=== PATIENT | female | born 1995 | race African-American/Black ===

== ENCOUNTER 2018-01-05 05:42 | Day surgery (SDC) | payer OTHER ==
[~2018-01-05] VITALS: Ht 172.7 cm; Wt 63.5 kg
[2018-01-05 06:16] LABS: BILIRUBIN,URINE NEGATIVE (NEGATIVE); CLARITY,URINE CLEAR; COLOR,URINE YELLOW; GLUCOSE, URINE (UA) NEGATIVE (NEGATIVE); KETONES,URINE NEGATIVE (NEGATIVE); LEUKOCYTE ESTERASE ,URINE NEGATIVE (NEGATIVE); NITRITE,URINE NEGATIVE (NEGATIVE); PH,URINE 6.5 (5-9); PROTEIN,URINE 1+ (NEGATIVE); UROBILINOGEN,URINE NORMAL (NORMAL)
[2018-01-05] MEDS ORDERED: LACTATED RINGERS 1,000 ML IV ONE ×3 (06:26→11:23)
--- NOTE | 2018-01-05 06:28 | ED Abdominal Pain ---
General Chief Complaint: Abdominal/GI Problems Stated Complaint: ABD PAIN Nursing Triage Note: pt presents to er with complaint of lower/midline abd pain. states the pain started yesterday but has worsened this morning. states she has thrown up once, denies diarrhea. Sepsis Screen: No Definite Risk Source of Information: Patient Exam Limitations: No Limitations History of Present Illness Date Seen by Provider: Jan 05, 2018 Time Seen by Provider: 06:00 Initial Comments Patient presents to ER by private conveyance with a chief complaint starting about 2:00 in the afternoon yesterday after eating she started having some abdominal pain that she describes starting around her umbilicus and radiating down towards her suprapubic region. She says the pain waxes and wanes from intensity of severity to moderate. She is not having any nausea presently but she did vomit 1 when the pain started. She took some Advil as well as some Excedrin but this is made no difference in her pain. She does not have a history of abdominal surgeries or abdominal problems. She does not have any dysuria, fevers, chills or recent trauma. She says this was starting after she ate and she tried to go on and perform at the [facility] and [place], [place] but could not push to the pain. It is not getting any better so she came to the ER. She is currently on her period. Allergies and Home Medications Allergies Coded Allergies: No Known Drug Allergies (Unverified , 01/05/18) Home Medications No Active Prescriptions or Reported Meds Patient Home Medication List Home Medication List Reviewed: Yes Review of Systems Constitutional: No chills, No diaphoresis, No fever, No malaise EENTM: No Blurred Vision, No Double Vision Respiratory: Denies Cough, Denies Shortness of Air Cardiovascular: Denies Chest Pain, Denies Palpitations, Denies Syncope Gastrointestinal: Denies Constipated, Denies Diarrhea, Denies Nausea Past Htmgrlm-Worbbv-Ypnsro Hx Patient Social History Alcohol Use: Denies Use Recreational Drug Use: No Smoking Status: Never a Smoker Recent Foreign Travel: No Contact w/Someone Who Travel: No Recent Infectious Disease Expo: No Recent Hopitalizations: No Immunizations Up To Date PED Vaccines UTD: Yes Seasonal Allergies Seasonal Allergies: No Surgeries History of Surgeries: No Respiratory History of Respiratory Disorde: No Cardiovascular History of Cardiac Disorders: No Neurological History of Neurological Disord: No Genitourinary History of Genitourinary Disor: No Gastrointestinal History of Gastrointestinal Di: No Musculoskeletal History of Musculoskeletal Dis: No Endocrine History of Endocrine Disorders: No HEENT History of HEENT Disorders: No Cancer History of Cancer: No Psychosocial History of Psychiatric Problem: No Integumentary History of Skin or Integumenta: No Blood Transfusions History of Blood Disorders: No Physical Exam Vital Signs VS - Last 72 Hours, by Label 01/05/18 05:50 Temp 97.0 Pulse 73 Resp 17 B/P (MAP) 123/84 (97) Pulse Ox 100 O2 Delivery Room Air Capillary Refill : Less Than 3 Seconds General Appearance: WD/WN, mild distress, thin HEENT: PERRL/EOMI, pharynx normal Neck: non-tender, supple, normal inspection Respiratory: chest non-tender, lungs clear, normal breath sounds Cardiovascular: normal peripheral pulses, regular rate, rhythm Gastrointestinal: normal bowel sounds, guarding, rebound (over McBurney's point ), tenderness (that was last night) Extremities: no pedal edema, no calf tenderness, normal capillary refill Neurologic/Psychiatric: alert, normal mood/affect, oriented x 3 Skin: normal color, warm/dry Progress/Results/Core Measures Results/Orders Lab Results Laboratory Tests Test 01/05/18 05:30 01/05/18 05:50 Range/Units White Blood Count 14.8 H 4.3-11.0 10^3/uL Red Blood Count 4.42 4.35-5.85 10^6/uL Hemoglobin 13.0 11.5-16.0 G/DL Hematocrit 38 35-52 % Mean Corpuscular Volume 86 80-99 FL Mean Corpuscular Hemoglobin 29 25-34 PG Mean Corpuscular Hemoglobin Concent 34 32-36 G/DL Red Cell Distribution Width 12.9 10.0-14.5 % Platelet Count 258 130-400 10^3/uL Mean Platelet Volume 11.0 H 7.4-10.4 FL Neutrophils (%) (Auto) 75 42-75 % Lymphocytes (%) (Auto) 16 12-44 % Monocytes (%) (Auto) 8 0-12 % Eosinophils (%) (Auto) 1 0-10 % Basophils (%) (Auto) 0 0-10 % Neutrophils # (Auto) 11.1 H 1.8-7.8 X 10^3 Lymphocytes # (Auto) 2.3 1.0-4.0 X 10^3 Monocytes # (Auto) 1.2 H 0.0-1.0 X 10^3 Eosinophils # (Auto) 0.1 0.0-0.3 10^3/uL Basophils # (Auto) 0.0 0.0-0.1 10^3/uL Neutrophils % (Manual) 80 % Lymphocytes % (Manual) 12 % Monocytes % (Manual) 7 % Eosinophils % (Manual) 1 % Toxic Granulation 1+ Blood Morphology Comment NORMAL Sodium Level 138 135-145 MMOL/L Potassium Level 3.7 3.6-5.0 MMOL/L Chloride Level 105 98-107 MMOL/L Carbon Dioxide Level 25 21-32 MMOL/L Anion Gap 8 5-14 MMOL/L Blood Urea Nitrogen 15 7-18 MG/DL Creatinine 0.96 0.60-1.30 MG/DL Estimat Glomerular Filtration Rate > 60 BUN/Creatinine Ratio 16 Glucose Level 101 70-105 MG/DL Calcium Level 9.1 8.5-10.1 MG/DL Total Bilirubin 0.5 0.1-1.0 MG/DL Aspartate Amino Transf (AST/SGOT) 22 5-34 U/L Alanine Aminotransferase (ALT/SGPT) 13 0-55 U/L Alkaline Phosphatase 51 40-136 U/L C-Reactive Protein High Sensitivity 0.65 H 0.00-0.50 MG/DL Total Protein 7.0 6.4-8.2 GM/DL Albumin 4.1 3.2-4.5 GM/DL Urine Color YELLOW Urine Clarity CLEAR Urine pH 6.5 5-9 Urine Specific [place] 1.020 1.016-1.022 Urine Protein 1+ H NEGATIVE Urine Glucose (UA) NEGATIVE NEGATIVE Urine Ketones NEGATIVE NEGATIVE Urine Nitrite NEGATIVE NEGATIVE Urine Bilirubin NEGATIVE NEGATIVE Urine Urobilinogen NORMAL NORMAL MG/DL Urine Leukocyte Esterase NEGATIVE NEGATIVE Urine RBC (Auto) 1+ H NEGATIVE Urine RBC RARE /HPF Urine WBC NONE /HPF Urine Squamous Epithelial Cells 2-5 /HPF Urine Crystals PRESENT H /LPF Urine Amorphous Sediment RARE KELLIE URATES H /LPF Urine Bacteria TRACE /HPF Urine Casts NONE /LPF Urine Mucus SMALL H /LPF Urine Culture Indicated NO Urine Test NEGATIVE NEGATIVE My Orders Orders - GABRIELLE ISM Ua Culture If Indicated (01/05/18 05:43) Hcg,Qualitative Urine (01/05/18 05:43) Cbc With Automated Diff (01/05/18 06:26) Comprehensive Metabolic Panel (01/05/18 06:26) Hs C Reactive Protein (01/05/18 06:26) Saline Lock/Iv-Start (01/05/18 06:26) Lactated Ringers (Lr 1000 Ml Iv Solution (01/05/18 06:26) Ct Abd/Pelv W (Appendicitis) (01/05/18 06:26) Fentanyl Injection (Sublimaze Injection (01/05/18 06:30) Manual Differential (01/05/18 05:30) Iohexol Injection (Omnipaque 350 Mg/Ml 1 (01/05/18 07:45) Ns (Ivpb) (Sodium Chloride 0.9% Ivpb Bag (01/05/18 07:45) Piperacillin Sodium/Tazobactam (Zosyn Vi (01/05/18 08:30) Fentanyl Injection (Sublimaze Injection (01/05/18 08:30) Medications Given in ED Current Medications Medications Dose Ordered Sig/Oneal Route Start Time Stop Time Status Last Admin Dose Admin Fentanyl Citrate 50 mcg ONCE ONCE IVP 01/05/18 06:30 01/05/18 06:31 DC 01/05/18 06:32 50 MCG Iohexol 100 ml ONCE ONCE IV 01/05/18 07:45 01/05/18 07:52 DC 01/05/18 07:38 100 ML Lactated Ringer's 1,000 ml @ 0 mls/hr Q0M ONCE IV 01/05/18 06:26 01/05/18 06:28 DC 01/05/18 06:32 1,000 MLS/HR Sodium Chloride 100 ml ONCE ONCE IV 01/05/18 07:45 01/05/18 07:52 DC 01/05/18 07:38 100 ML Vital Signs/I&O Vital Sign - Last 12Hours 01/05/18 05:50 Temp 97.0 Pulse 73 Resp 17 B/P (MAP) 123/84 (97) Pulse Ox 100 O2 Delivery Room Air Blood Pressure Mean: 97 Progress Note : Time: 08:19 Progress Note Zosyn and pain meds and the surgeon will come see her in the ER. Diagnostic Imaging Diagonstic Imaging: CT (with contrast) Plain Films/CT/US/NM/MRI: abdomen, pelvis Comments Discussed with radiologist and she feels that because of the lack of intra- abdominal fat is very difficult to tell if she is looking at the appendix or a blind loop of small bowel. There is lots of loops was distended bowel but she feels there is an 11 mm diameter case of mild appendicitis and a possible mid appendicolith. She would recommend clinical correlation and if we need further imaging could do another CT of the pelvis with rectal contrast. Impression: Amenable mild acute appendicitis with a possible small mid appendicolith and mild dilatation of the mid distal appendix up to 12 mm in diameter. However differentiation of the appendix from adjacent fluid filled small bowel loops is limited. If further imaging evaluation is desired suggest repeat pelvic CT following rectal contrast administration. Reviewed: Reviewed by Me, Discussed w/Radiologist (eugenio) Departure Communication (Admissions) Time/Spoke to Admitting Phy: 08:18 Communication Delman: Discussed case lab imaging findings with the general surgeon and he agrees with the diagnosis of appendicitis and will come see the patient in the ER. Impression Impression: Primary Impression: Appendicitis Qualified Codes: K35.80 - Unspecified acute appendicitis Disposition: ADMITTED INPATIENT Condition: Stable Admissions Decision to Admit Reason: Admit from ER (General) Decision to Admit/Date: Jan 05, 2018 Time/Decision to Admit Time: 08:19 Departure-Patient Inst. Referrals: NO,LOCAL PHYSICIAN (PCP/Family) Primary Care Physician Scripts No Active Prescriptions or Reported Meds GABRIELLE SIM Jan 05, 2018 06:28
[2018-01-05] MEDS ORDERED: fentaNYL INJECTION 100 MCG/2 ML AMP IVP ONE ×2 (06:30→08:30)
[2018-01-05 06:36] LABS: BASOPHILS % (AUTO) 0 % (0-10); EOSINOPHILS # (AUTO) 0.1 10^3/uL (0.0-0.3); EOSINOPHILS % (AUTO) 1 % (0-10); HEMATOCRIT 38 % (35-52); LYMPHOCYTES # (AUTO) 2.3 X 10^3 (1.0-4.0); LYMPHOCYTES % (AUTO) 16 % (12-44); MEAN CORPUSCULAR HEMOGLOBIN 29 PG (25-34); MEAN CORPUSCULAR HGB CONC 34 G/DL (32-36); MEAN CORPUSCULAR VOLUME 86 FL (80-99); MONOCYTES # (AUTO) 1.2 X 10^3 (0.0-1.0); MONOCYTES % (AUTO) 8 % (0-12); NEUTROPHILS # (AUTO) 11.1 X 10^3 (1.8-7.8); NEUTROPHILS % (AUTO) 75 % (42-75); PLATELET COUNT 258 10^3/uL (130-400); RED BLOOD COUNT 4.42 10^6/uL (4.35-5.85); RED CELL DISTRIBUTION WIDTH 12.9 % (10.0-14.5); WHITE BLOOD COUNT 14.8 10^3/uL (4.3-11.0)
[2018-01-05 06:39] LABS: RBC,URINE RARE /HPF
[2018-01-05 06:40] LABS: AMORPHOUS SEDIMENT,UR RARE AMOR URATES /LPF; BACTERIA,URINE TRACE /HPF
[2018-01-05 06:52] LABS: ALANINE AMINOTRANSFERASE 13 U/L (0-55); ALBUMIN 4.1 GM/DL (3.2-4.5); ALKALINE PHOSPHATASE 51 U/L (40-136); BILIRUBIN,TOTAL 0.5 MG/DL (0.1-1.0); BUN/CREATININE RATIO 16; CALCIUM 9.1 MG/DL (8.5-10.1); CARBON DIOXIDE 25 MMOL/L (21-32); CHLORIDE 105 MMOL/L (98-107); CREATININE SERUM 0.96 MG/DL (0.60-1.30); GFR ESTIMATED > 60; GLUCOSE 101 MG/DL (70-105); POTASSIUM 3.7 MMOL/L (3.6-5.0); SODIUM 138 MMOL/L (135-145)
[2018-01-05 06:54] LABS: EOSINOPHILS % (MANUAL) 1 %; LYMPHOCYTES % (MANUAL) 12 %; MONOCYTES % (MANUAL) 7 %; NEUTROPHILS % (MANUAL) 80 %
[2018-01-05 06:55] LABS: RBC MORPH NORMAL; TOXIC GRANULATION/VACUOLAZATIO 1+
[2018-01-05] MEDS ORDERED: NS 100 ML (IVPB) BAG IV ONE (07:45)
[2018-01-05] MEDS ORDERED: IOHEXOL 350 MG/ML 100 ML (OMNIPAQUE 350) VIAL IV ONE (07:45)
--- NOTE | 2018-01-05 07:53 | Diagnostic Imaging Report ---
PROCEDURE: CT abdomen and pelvis with contrast, rule out appendicitis. TECHNIQUE: Multiple contiguous axial images were obtained through the abdomen and pelvis after the administration of intravenous contrast. INDICATION: Abdominal pain. COMPARISON: None. FINDINGS: The lung bases are clear. There is some focal fatty change around the falciform ligament. The liver appears unremarkable. The gallbladder appears normal. There is no biliary dilatation. The spleen, pancreas, adrenal glands, and kidneys appear unremarkable. There is no evidence of appendicitis. There is no evidence of bowel obstruction or focal inflammatory process. The uterus and adnexa appear unremarkable. The bladder appears unremarkable. The abdominal aorta appears normal in caliber. There are a few prominent lymph nodes in the mesentery of the central abdomen. IMPRESSION: No acute abnormality is demonstrated in the abdomen or pelvis. There are a few prominent lymph nodes in the central mesentery. These are nonspecific. There is no evidence of appendicitis. Dictated by: Dictated on workstation # [id number]
[2018-01-05] MEDS ORDERED: PIPERACILLIN SODIUM/TAZOBACTAM 4.5 GM in NS (IVPB) 100 ML IV ONE (08:30)
[2018-01-05] MEDS ORDERED: LIDOCAINE/EPI 1%-1:200,000 (XYLOCAINE) 10 ML VIAL ONE (10:11)
[2018-01-05] MEDS ORDERED: ROCURONIUM 10 MG/ML 5 ML SYRINGE IV ONE (10:14)
[2018-01-05] MEDS ORDERED: LIDOCAINE PF 2% 5 ML (XYLOCAINE) VIAL ONE (10:14)
[2018-01-05] MEDS ORDERED: SEVOFLURANE (ULTANE) 15 ML INHAL SOLN ONE (10:14)
[2018-01-05] MEDS ORDERED: proPOfol 200 MG/20 ML (DIPRIVAN) VIAL IV ONE (10:14)
[2018-01-05] MEDS ORDERED: fentaNYL INJECTION 100 MCG/2 ML AMP ONE (10:15)
[2018-01-05] MEDS ORDERED: MIDAZOLAM 2 MG/2 ML (VERSED) VIAL ONE (10:15)
--- NOTE | 2018-01-05 10:17 | Consultation ---
History of Present Illness History of Present Illness Patient Consulted On(geronimo/time) 01/05/18 10:09 Time Seen by Provider: 09:49 History of Present Illness Surgery asked to consult regarding possible appendicitis. HPI per ED: Patient presents to ER by private conveyance with a chief complaint starting about 2:00 in the afternoon yesterday after eating she started having some abdominal pain that she describes starting around her umbilicus and radiating down towards her suprapubic region. She says the pain waxes and wanes from intensity of severity to moderate. She is not having any nausea presently but she did vomit 1 when the pain started. She took some Advil as well as some Excedrin but this is made no difference in her pain. She does not have a history of abdominal surgeries or abdominal problems. She does not have any dysuria, fevers, chills or recent trauma. She says this was starting after she ate and she tried to go on and perform at the [facility] and [place], [place] but could not push to the pain. It is not getting any better so she came to the ER. She is currently on her period. Pt states the pain is 8 out of 10 without the pain meds, she couldn't even walk because of the pain (had to be hunched over). She says the pain is sharp and constant. She points to her right LQ when asked to point with one finger where the pain is worst. Allergies and Home Medications Allergies Coded Allergies: No Known Drug Allergies (Unverified , 01/05/18) Home Medications No Active Prescriptions or Reported Meds Patient Home Medication List Home Medication List Reviewed: Yes Past Yxbthcx-Amnytw-Oyhlgl Hx Patient Social History Alcohol Use: Denies Use Recreational Drug Use: No Smoking Status: Never a Smoker Recent Foreign Travel: No Contact w/Someone Who Travel: No Recent Infectious Disease Expo: No Recent Hopitalizations: No Immunizations Up To Date PED Vaccines UTD: Yes Seasonal Allergies Seasonal Allergies: No Surgeries History of Surgeries: No Respiratory History of Respiratory Disorde: No Cardiovascular History of Cardiac Disorders: No Neurological History of Neurological Disord: No Genitourinary History of Genitourinary Disor: No Gastrointestinal History of Gastrointestinal Di: No Musculoskeletal History of Musculoskeletal Dis: No Endocrine History of Endocrine Disorders: No HEENT History of HEENT Disorders: No Cancer History of Cancer: No Psychosocial History of Psychiatric Problem: No Integumentary History of Skin or Integumenta: No Blood Transfusions History of Blood Disorders: No Family Medical History Significant Family History: Asthma (parents) Review of Systems-General Constitutional: chills, No diaphoresis, No dizziness, No fever, weakness EENTM: No blurred vision, No mouth pain, No mouth swelling, No epistaxis, No throat swelling Respiratory: No cough, No dyspnea on exertion, No hemoptysis Cardiovascular: No chest pain, No edema, No palpitations Gastrointestinal: RLQ, No hematemesis, No melena, vomiting Genitourinary: No dysuria, No frequency, No hematuria : No LMP: Jan 05, 2018 Musculoskeletal: No back pain, No joint pain, No muscle stiffness, No muscle cramps Skin: No change in color, No change in hair/nails Psychiatric/Neurological: Denies Anxiety, Denies Depressed Other pt denies any history of abnormal bruising or bleeding. Denies any heat or cold intolerance Physical Exam-General Problems Physical Exam Vital Signs Vital Signs - First Documented 01/05/18 05:50 Temp 97.0 Pulse 73 Resp 17 B/P (MAP) 123/84 (97) Pulse Ox 100 O2 Delivery Room Air Capillary Refill : Less Than 3 Seconds General Appearance: WD/WN, mild distress Eyes: Bilateral Eye PERRL, Bilateral Eye EOMI HEENT: pharynx normal, No scleral icterus (R), No scleral icterus (L), No pale conjunctivae (R), No pale conjunctivae (L) Neck: non-tender, full range of motion, supple, normal inspection Respiratory: chest non-tender, lungs clear, normal breath sounds, no respiratory distress, no accessory muscle use Cardiovascular: regular rate, rhythm, no edema, no gallop, no JVD, no murmur Gastrointestinal: normal bowel sounds, no organomegaly, guarding (voluntary), rebound, tenderness (RLQ), No hernia Back: no CVA tenderness, no vertebral tenderness Extremities: normal range of motion, non-tender, normal inspection, no pedal edema, no calf tenderness Neurologic/Psychiatric: loom setter fourdrinier II-XII nml as tested, no motor/sensory deficits, alert, normal mood/affect, oriented x 3 Skin: normal color, warm/dry Lymphatic: no adenopathy (neck, axilla or groin) Data Review Labs Laboratory Tests 01/05/18 05:30: White Blood Count 14.8H, Red Blood Count 4.42, Hemoglobin 13.0, Hematocrit 38, Mean Corpuscular Volume 86, Mean Corpuscular Hemoglobin 29, Mean Corpuscular Hemoglobin Concent 34, Red Cell Distribution Width 12.9, Platelet Count 258, Mean Platelet Volume 11.0H, Neutrophils (%) (Auto) 75, Lymphocytes (%) (Auto) 16 , Monocytes (%) (Auto) 8, Eosinophils (%) (Auto) 1, Basophils (%) (Auto) 0, Neutrophils # (Auto) 11.1H, Lymphocytes # (Auto) 2.3, Monocytes # (Auto) 1.2H, Eosinophils # (Auto) 0.1, Basophils # (Auto) 0.0, Neutrophils % (Manual) 80, Lymphocytes % (Manual) 12, Monocytes % (Manual) 7, Eosinophils % (Manual) 1, Toxic Granulation 1+, Blood Morphology Comment NORMAL, Sodium Level 138, Potassium Level 3.7, Chloride Level 105, Carbon Dioxide Level 25, Anion Gap 8, Blood Urea Nitrogen 15, Creatinine 0.96, Estimat Glomerular Filtration Rate > 60 , BUN/Creatinine Ratio 16, Glucose Level 101, Calcium Level 9.1, Total Bilirubin 0.5, Aspartate Amino Transf (AST/SGOT) 22, Alanine Aminotransferase ( ALT/SGPT) 13, Alkaline Phosphatase 51, C-Reactive Protein High Sensitivity 0.65H , Total Protein 7.0, Albumin 4.1 01/05/18 05:50: Urine Color YELLOW, Urine Clarity CLEAR, Urine pH 6.5, Urine Specific [place] 1.020, Urine Protein 1+H, Urine Glucose (UA) NEGATIVE, Urine Ketones NEGATIVE, Urine Nitrite NEGATIVE, Urine Bilirubin NEGATIVE, Urine Urobilinogen NORMAL, Urine Leukocyte Esterase NEGATIVE, Urine RBC (Auto) 1+H, Urine RBC RARE, Urine WBC NONE, Urine Squamous Epithelial Cells 2-5, Urine Crystals PRESENTH, Urine Amorphous Sediment RARE KELLIE URATESH, Urine Bacteria TRACE, Urine Casts NONE, Urine Mucus SMALLH, Urine Culture Indicated NO, Urine Test NEGATIVE Assessment/Plan Assessment/Plan Assessment/Plan Acute Appendicitis Pt has RLQ pain that started around umbilicus; classic for appendicitis pain. CT read by radiology as dilated appendix with probable appendicolith and she has a 14k white count. Pt is on IV fluids, already received a dose of ABX, she is NPO, and getting IV pain meds. She needs to be taken to the OR for Laparoscopic Appendectomy, possible open. I discussed the procedure with her; risks and complications not limited to pain, bleeding, infection and scar. All questions answered to her satisfaction. EMPERATRIZ URIBE DO Jan 05, 2018 10:17
[2018-01-05] MEDS: LACTATED RINGERS 1,000 ML IV PRN ×2 (10:37→11:17)
[2018-01-05] MEDS ORDERED: morphine INJ 4 MG/ML 1 ML (VIAL/SYRINGE) ONE (11:20)
[2018-01-05] MEDS ORDERED: NEOSTIGMINE 1 MG/ML 5 ML SYRINGE ONE (11:28)
--- NOTE | 2018-01-05 11:43 | Progress Note-Post Operative ---
Post-Operative Progess Note Surgeon (s)/Coating Machine Feeder (s) Surgeon EMPERATRIZ URIBE DO Coating Machine Feeder: none Pre-Operative Diagnosis acute appendicitis Post-Operative Diagnosis same pending path Procedure & Operative Findings Date of Procedure 01/05/18 Procedure Performed/Findings Lap appy Anesthesia Type GET Estimated Blood Loss Estimated blood loss (mL): scant Specimens/Packing Specimens Removed EMPERATRIZ Kaye DO Jan 05, 2018 11:43
--- NOTE | 2018-01-05 11:46 | Discharge Inst-Surgical ---
Discharge Inst-Surgical Depart Medication/Instructions New, Converted or Re-Newed RX: RX Given to Pt/Family Patient Instructions Follow up Appt: Make appointment for 1 week with primary physician at home. Call for any questions [phone] Instructions: No lifting greater than 10 pounds. No strenuous activity. May shower in 24 hours, no tub bath or soaking. Use incentive spirometer at home as directed. No Smoking Skin/Wound Care: May remove bandages in am. You need to leave the Dermabond on over incision it will fall off on its own. Symptoms to Report: Appetite Changes, Extremity Discoloration, Numbness/Tingling, Swelling Increased , Bleeding Excessive, Eyesight Changes, Pain Increased, Urine Color Change, Constipation(Persistent), Fever over 101 degree F, Pain/Pressure in chest, Urinating Difficulty, Cough Up/Vomit Blood, Heart Beat Irreg/Pounding, Pain/ Pressure in jaw, Vaginal Bleeding Increase, Cramps in feet or legs, Lightheadedness, Pain/Pressure in shoulder, Diarrhea(Persistent), Memory Changes Suddenly, Questions/Concerns, Weight gain consecutive days, Dizziness/ Fainting, Nausea/Vomiting, Shortness of Breath, Weight gain over 2 pounds If questions or concerns contact your physician Or seek help at emergency department. Activity Activity as Tolerated: Yes Activity Instructions: Avoid Stress to Incision Driving Instructions: No Driving/Refer to Dr. Lindo Discharge Diet: No Restrictions Diet After 24 Hours: Clear Liquid if Nauseous If Any Problems/Questions/Issu: Contact Your Physician, Go to Emergency Room Skin/Wound Care Infection Signs and Symptoms: Increased Redness, Foul Odor of Wound, Increased Drainage, Skin Itchy or Has a Rash, Increased Swelling, Temperature Above 101 F Wound Care Comment: heating pad to neck or shoulder tonight for pain Bathing Instructions: Shower Stitches/Mccoll/Dermabond Dis: Dermabond Ice Pack: Ice On and Off Site EMPERATRIZ URIBE DO Jan 05, 2018 11:45
[2018-01-05] MEDS ORDERED: ACHD5005 PO (11:47)
[2018-01-05] MEDS ORDERED: MEPERIDINE (DEMEROL) INJ 50 MG/ML IVP PRN (12:00)
[2018-01-05] MEDS ORDERED: ONDANSETRON 4 MG/2 ML (SDV) Z0FRAN IVP PRN (12:00)
[2018-01-05] MEDS ORDERED: morphine INJ 10 MG/ML 1ML (SYR OR VIAL) IVP PRN (12:00)
[2018-01-05 13:00] VITALS: BP 133/80
[2018-01-05] MEDS ORDERED: HYDROcodone/APAP 5 MG/325 MG (LORTAB) TAB PO PRN (13:45)
[2018-01-05 15:06] VITALS: BP 123/72
--- NOTE | 2018-01-05 21:36 | OPERATIVE REPORT ---
DATE OF SERVICE: PREOPERATIVE DIAGNOSIS: Acute appendicitis. POSTOPERATIVE DIAGNOSIS: Acute appendicitis. PROCEDURE: Laparoscopic appendectomy. SURGEON: Dr. Woodall. AD OPERATIONS SPECIALIST: None. ANESTHESIA: General endotracheal tube by SAP BW CONSULTANT. SPECIMEN: Appendix. BLOOD LOSS: Scant. FLUIDS: Per anesthesia. POSTOPERATIVE CONDITION: Stable. INDICATION FOR PROCEDURE: The patient is a 22-year-old female who started having some abdominal pain yesterday around the umbilicus and then going down to the right lower quadrant, came to the emergency room, had elevated white count and CAT scan showed appendicitis. FINDINGS: The patient had acute appendicitis. PROCEDURE NOTE: After informed consent was obtained, the patient was brought to the operating room, placed on the operating table in supine position. She was sterilely prepped and draped in normal fashion. Local lidocaine used to infiltrate above the umbilicus and made incision with #11 blade, carried down to skin into subcutaneous tissue, then deepened down to subcutaneous tissue with Bovie electrocautery down to the fascia. Fascia incised with electrocautery, bluntly entered the abdomen, swept the finger around, placed 0 Vicryl [id number] suture, then placed 11 mm trocar port under direct visualization. Created pneumoperitoneum and placed 2 more ports in normal fashion using local lidocaine, 11 blade for stab incision and the VersaStep system, all done under direct visualization, one suprapubically and one in left lower quadrant. The patient was then placed in Trendelenburg and rotated left, able to visualize the appendix and it was inflamed, stuck to the small intestine, able to carefully peel this away, firm erythematous, able to grasp the mesoappendix and then used the LigaSure coming across the mesoappendix in a stepwise fashion, clamping, coagulating and then transecting in this fashion coming all the way across coagulating and transecting the appendiceal artery and then once the appendix was attached only to the cecum, switched to a 5 mm camera, brought the Endo-SHAYY into the abdomen, placed across the base of appendix, clamped and fired, thereby transecting it, removed this, placed a bag in the abdomen, placed the appendix in the bag and then removed this through a supraumbilical incision. Placed the port back in the abdomen, looked around, no other obvious pathology, suctioned out minimal fluid, irrigation suction this out. I then placed the patient supine. Pulled the omentum down over this area and then removed all ports under direct visualization, allowed pneumoperitoneum to escape, closed supraumbilical incision, closing the fascia with 0 Vicryl suture previously placed. Copiously irrigated all incisions with normal saline, closing the 2 small 5 mm incision with a single interrupted 4-0 undyed Monocryl subcuticular stitch, closed supraumbilical incision with 3 interrupted 4-0 undyed Monocryl subcuticular stitches. Area was cleaned and dried and Dermabond placed as well as Band-Aids. The patient then transferred to recovery room in stable condition. Sponge, instrument and needle counts correct at the end of the case. Job ID: [id number] DocumentID: [id number] Dictated Date: 01/05/2018 17:38:00 Drying Unit Felting Machine Operator Date: 01/05/2018 21:36:10 Dictated By: EMPERATRIZ WOODALL DO
--- NOTE | 2018-01-06 10:12 | Anesthesia-General Post-Op ---
General Patient Condition Mental Status/LOC: Same as Preop Cardiovascular: Satisfactory Nausea/Vomiting: Absent Respiratory: Satisfactory Pain: Controlled Complications: Absent Post Op Complications Complications None Follow Up Care/Instructions Patient Instructions None needed. Anesthesia/Patient Condition Patient Condition Patient is doing well, no complaints, stable vital signs, no apparent adverse anesthesia problems. No complications reported per nursing. D/C home per [facility] Criteria: Yes SOMIN FONTAINE CRNA Jan 06, 2018 10:12
== END 2018-01-05 15:10 | disposition home or self-care (01) ==
LOC: ER 05:46 → 4TH 13:07 → SDC 13:07
PROVIDERS: ATTEND Surgery
DX: K35.80 Unspecified acute appendicitis (principal)
CPT/HCPCS: 36415; 74177; 80053; 81000; 84703; 85007; 85027; 86141